=== PATIENT | male | born 1970 | race African-American/Black ===

== ENCOUNTER 2020-03-19 12:21 | Inpatient (IN) | payer MEDICAID ==
[~2020-03-19] VITALS: Ht 172.7 cm; Wt 77.1 kg
[2020-03-19 12:54] LABS: BASOPHILS % 0.5 % (0.0-2.0); EOSINOPHILS % 2.2 % (0.0-5.0); HEMATOCRIT. 42.7 % (42.0-52.0); HEMOGLOBIN. 14.3 g/dL (14.0-18.0); LYMPHOCYTES % 38.1 % (20.0-50.0); MEAN CORPUSCULAR HEMOGLOBIN 28.6 pg (28.0-32.0); MEAN CORPUSCULAR VOLUME 85.6 fL (80.0-94.0); MEAN PLATELET VOLUME 8.8 fl (7.4-10.4); MONOCYTES % 7.7 % (2.0-8.0); NEUTROPHILS % 51.5 % (40.0-76.0); PLATELET 185 x1000/uL (130-400); RED BLOOD CELL COUNT 4.99 mill/uL (4.7-6.1); RED CELL DISTRIBUTION WIDTH 13.9 % (11.6-14.6)
[2020-03-19 13:01] LABS: CHLORIDE 104 mEq/L (98-107); INR 1.1; PROTHROMBIN TIME 11.4 sec (9.6-11.0)
[2020-03-19 13:06] LABS: ETHANOL BLOOD < 10 mg/dL
[2020-03-19 13:08] LABS: LDL CHOLESTEROL 97 mg/dL (5-100)
[2020-03-19 14:53] LABS: CLARITY URINE CLEAR (CLEAR); COLOR URINE YELLOW (YELLOW); KETONES URINE NEGATIVE (NEGATIVE); LEUKOCYTE ESTERASE URINE NEGATIVE (NEGATIVE); NITRITE URINE NEGATIVE (NEGATIVE); OCCULT BLOOD URINE 2+ (NEGATIVE); PROTEIN URINE NEGATIVE (NEGATIVE); SPECIFIC GRAVITY URINE 1.014 (1.005-1.030); UROBILINOGEN URINE 0.2 E.U./dL (0.2-1.0)
[2020-03-19 15:07] LABS: *AMPHETAMINES SCREEN URINE NEGATIVE (NEGATIVE); CANNABINOID URINE SCREEN NEGATIVE (NEGATIVE); METHADONE URINE SCREEN NEGATIVE (NEGATIVE); OPIATES URINE SCREEN NEGATIVE (NEGATIVE); PHENCYCLIDINE URINE SCREEN PRESUMTIVE POSITIVE (NEGATIVE)
[2020-03-19 15:08] LABS: *BARBITURATES SCREEN URINE NEGATIVE (NEGATIVE); *BENZODIAZEPINES SCREEN URINE NEGATIVE (NEGATIVE); *COCAINE SCREEN URINE NEGATIVE (NEGATIVE)
[2020-03-19] MEDS ORDERED: AZITHROMYCIN 500 MG in DEXT 5% WATER 250 ML IV SCH (15:15)
[2020-03-20 02:32] VITALS: BP 142/82
[2020-03-20 04:00] VITALS: BP 111/46
[2020-03-20] MEDS ORDERED: ACETAMINOPHEN 325MG TABLET PO PRN (04:30)
[2020-03-20] MEDS: CEFTRIAXONE 1 G PREMIX 50 ML IV SCH (05:48)
[2020-03-20 08:00] VITALS: BP 120/49
[2020-03-20] MEDS: ENOXAPARIN 40MG/0.4ML SYR SUBCUT SCH (08:51)
[2020-03-20] MEDS ORDERED: CEFTRIAXONE SODIUM 500 MG/VIAL IV SCH (09:00)
[2020-03-20] MEDS ORDERED: LORAZEPAM 2MG/ML CPJ IV PRN (10:30)
[2020-03-20] MEDS: LEVETIRACETAM 500MG TABLET PO SCH ×2 (11:40→20:52)
[2020-03-20 12:00] VITALS: BP 123/67
[2020-03-20 16:00] VITALS: BP 111/62
[2020-03-20] MEDS: AZITHROMYCIN 500 MG in DEXT 5% WATER 250 ML IV SCH (16:09)
[2020-03-20] MEDS ORDERED: ALBUTEROL 6.7GM HFA INHALER ORI PRN (16:19)
[2020-03-20 20:00] VITALS: BP 135/85
[2020-03-21] VITALS (7 sets, daily range): BP systolic 98–132; BP diastolic 64–89
[2020-03-21] MEDS: CEFTRIAXONE 1 G PREMIX 50 ML IV SCH (05:39)
[2020-03-21] MEDS: ENOXAPARIN 40MG/0.4ML SYR SUBCUT SCH (08:24)
[2020-03-21] MEDS: LEVETIRACETAM 500MG TABLET PO SCH ×2 (08:24→20:49)
[2020-03-21] MEDS ORDERED: IOHEXOL-350 100 ML BOTTLE ONE (12:06)
[2020-03-21] MEDS: AZITHROMYCIN 500 MG in DEXT 5% WATER 250 ML IV SCH (16:05)
[2020-03-22 04:00] VITALS: BP 114/79
[2020-03-22 08:00] VITALS: BP 119/83
[2020-03-22] MEDS: CEFTRIAXONE 1 G PREMIX 50 ML IV SCH (09:31)
[2020-03-22] MEDS: LEVETIRACETAM 500MG TABLET PO SCH (09:31)
[2020-03-22] MEDS: ENOXAPARIN 40MG/0.4ML SYR SUBCUT SCH (09:32)
[2020-03-22 12:00] VITALS: BP 103/80
[2020-03-22] MEDS ORDERED: KEPP500 PO (14:02)
[2020-03-22 16:00] VITALS: BP 125/63
[2020-03-22 16:37] VITALS: BP 125/63
[2020-03-22] MEDS: AZITHROMYCIN 500 MG in DEXT 5% WATER 250 ML IV SCH (17:04)
[2020-03-22] MEDS ORDERED: RISPERIDONE 0.5MG TABLET PO SCH (21:00)
[2020-03-23] MEDS ORDERED: AZITHROMYCIN 500 MG TABLET PO SCH (09:00)
== END 2020-03-22 17:45 | disposition home or self-care (01) | DRG 812 ==
LOC: ER 12:21 → EDBD 12:21 → EDBEDREQTM 15:06 → EDBEDREQ 15:06 → EDBEDREQSVC 16:40 → EDBEDREQTM 16:40 → CANRESERV 20:16 → ENRESERV 20:16 → EDBEDREQSVC 20:44 → EDBEDREQTM 20:44 → MICUSO 23:30 → 7WST 03-20 01:38 → 5WST 03-21 21:00
PROVIDERS: ADMIT Internal Medicine; ATTEND Internal Medicine
DX: T40.991A Poisoning by other psychodysleptics [hallucinogens], accidental (unintentional), initial encounter (principal); G92 Toxic encephalopathy; J68.0 Bronchitis and pneumonitis due to chemicals, gases, fumes and vapors; F20.9 Schizophrenia, unspecified; G40.909 Epilepsy, unspecified, not intractable, without status epilepticus; F10.10 Alcohol abuse, uncomplicated; F41.9 Anxiety disorder, unspecified; F16.10 Hallucinogen abuse, uncomplicated; F31.9 Bipolar disorder, unspecified; R62.50 Unspecified lack of expected normal physiological development in childhood; Z03.818 Encounter for observation for suspected exposure to other biological agents ruled out
CPT/HCPCS: 36415; 70496; 70498; 70551; 71045; 80053; 80305; 80320; 81003; 82962; 83721; 84484; 85025; 93005; 96365; 99291; J0456; J0696; J1650; J2060; J7060; Q9967; G0480; U0003-CS